=== PATIENT | female | born 1945 | race Caucasian/White ===

== ENCOUNTER 2019-03-31 15:12 | Emergency (ER) | payer MEDICARE ==
[2019-03-31] MEDS ORDERED: DIAZEPAM 5 MG TABLET ONE (16:25)
[2019-03-31] MEDS ORDERED: KETOROLAC TROMETHAMINE 30MG/ML ONE (16:25)
== END 2019-03-31 17:29 | disposition home or self-care (01) ==
LOC: EDH 15:12
DX: M25.562 Pain in left knee (principal); E78.5 Hyperlipidemia, unspecified; E11.9 Type 2 diabetes mellitus without complications; I10 Essential (primary) hypertension; Z86.73 Personal history of transient ischemic attack (TIA), and cerebral infarction without residual deficits; Z88.0 Allergy status to penicillin; Z88.2 Allergy status to sulfonamides; Z88.8 Allergy status to other drugs, medicaments and biological substances
CPT/HCPCS: 73562; 96372; 99284; J1885